=== PATIENT | male | born 1960 | race Caucasian/White ===

== ENCOUNTER 2017-05-26 18:53 | Emergency (ER) | payer OTHER ==
[~2017-05-26] VITALS: Ht 160 cm; Wt 77.1 kg
[~2017-05-26 18:53] MED LIST: MOBIC7.5 MG PO; NORCO 5-325 TA1 EACH PO; REQUIP4 MG PO
[2017-05-26 20:04] LABS: ABSOLUTE BASOPHILS 0.1 thou/uL (0.0-0.2); ABSOLUTE EOSINOPHILS 0.1 thou/uL (0.0-0.7); ABSOLUTE MONOCYTES 0.9 thou/uL (0.0-1.2); ABSOLUTE NEUTROPHILS 3.2 thou/uL (1.6-8.1); BASOPHILS 1.3 %; EOSINOPHILS 2.1 %; HEMATOCRIT 49.3 % (42.0-52.0); HEMOGLOBIN 16.4 gm/dL (14.0-18.0); LYMPHOCYTES 31.4 %; MCH 29.3 pg (26.0-34.0); MCHC 33.3 g/dL (28.0-37.0); MCV 88.1 fL (80.0-100.0); MONOCYTES 14.2 %; MPV 7.4 fl. (7.2-11.1); NUCLEATED RBCS 0 /100WBC; PLATELET COUNT* 207 thou/uL (150-400); RDW-CV 13.3 % (10.5-14.5); WBC 6.3 thou/uL (4.0-11.0)
[2017-05-26 20:20] LABS: POTASSIUM 4.5 mmol/L (3.5-5.1)
[2017-05-26 20:25] LABS: TOTAL BILIRUBIN 0.4 mg/dL (<0.1-1.0); TOTAL PROTEIN 6.1 g/dL (6.4-8.2)
[2017-05-26 21:24] LABS: URINE BILIRUBIN NEGATIVE (Negative); URINE BLOOD NEGATIVE (Negative); URINE CLARITY CLEAR; URINE COLOR YELLOW; URINE GLUCOSE-RANDOM NEGATIVE (Negative); URINE KETONES NEGATIVE (Negative); URINE LEUKOCYTES-REFLEX NEGATIVE (Negative); URINE NITRITE-REFLEX NEGATIVE (Negative); URINE PROTEIN NEGATIVE (Negative); URINE SPECIFIC GRAVITY >= 1.030 (1.005-1.030); URINE UROBILINOGEN 0.2 E.U./dl (0.2-1.0)
[2017-05-26] MEDS ORDERED: HYDROCODONE-AP1 EAC6 PO (22:09)
[2017-05-26 22:26] VITALS: BP 131/94
--- NOTE | 2017-05-27 11:27 | EKG ---
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 05/27/17 1127 02 02 Davi Ken MD, FACC /EPI
== END 2017-05-26 22:27 | disposition home or self-care (01) ==
LOC: M.ERS 18:53
PROVIDERS: Family Medicine
DX: R60.0 Localized edema (principal); I10 Essential (primary) hypertension

== ENCOUNTER 2017-12-28 06:53 | Emergency (ER) | payer OTHER ==
[~2017-12-28] VITALS: Ht 160 cm; Wt 78.0 kg
[~2017-12-28 06:53] MED LIST changes: +HYDROCODONE-AP1 EAC6 PO
[2017-12-28] MEDS ORDERED: COZAAR 25 MG TA25 M1 PO (07:03)
[2017-12-28 07:34] LABS: ABSOLUTE EOSINOPHILS 0.1 thou/uL (0.0-0.7); ABSOLUTE LYMPHOCYTES 1.9 thou/uL (0.8-5.3); ABSOLUTE MONOCYTES 0.5 thou/uL (0.0-1.2); ABSOLUTE NEUTROPHILS 3.3 thou/uL (1.6-8.1); BASOPHILS 0.7 %; EOSINOPHILS 2.3 %; HEMATOCRIT 44.9 % (42.0-52.0); HEMOGLOBIN 14.9 gm/dL (14.0-18.0); LYMPHOCYTES 32.5 %; MCH 27.7 pg (26.0-34.0); MCHC 33.1 g/dL (28.0-37.0); MCV 83.7 fL (80.0-100.0); MONOCYTES 9.1 %; MPV 7.5 fl. (7.2-11.1); NUCLEATED RBCS 0 /100WBC; PLATELET COUNT* 244 thou/uL (150-400); POLYS 55.4 %; RBC 5.37 mil/uL (4.50-6.00); RDW-CV 16.5 % (10.5-14.5); WBC 5.9 thou/uL (4.0-11.0)
[2017-12-28 07:38] LABS: ANION GAP 8 mmol/L (7-16); BUN 14 mg/dL (7-18); CALCIUM 8.6 mg/dL (8.5-10.1); CHLORIDE 104 mmol/L (98-107); CO2 28 mmol/L (21-32); GLUCOSE 108 mg/dL (70-99); POTASSIUM 4.2 mmol/L (3.5-5.1); SODIUM 140 mmol/L (136-145)
[2017-12-28 07:39] LABS: APTT 26.7 Seconds (25.0-31.3)
[2017-12-28 07:48] LABS: ALBUMIN 3.4 g/dL (3.4-5.0); ALKALINE PHOSPHATASE 95 U/L (46-116); NT-PRO BRAIN NAT PEPTIDE 258 pg/mL (<300); SGPT 45 U/L (30-65); TOTAL BILIRUBIN 0.4 mg/dL (<0.1-1.0); TOTAL PROTEIN 7.4 g/dL (6.4-8.2); TROPONIN-I LEVEL <0.06 ng/mL (<0.06)
[2017-12-28 07:51] LABS: SGOT 25 U/L (15-37)
[2017-12-28 08:16] VITALS: BP 152/86
--- NOTE | 2017-12-28 17:10 | EKG ---
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1960 Requested By: Neville Duran Order Number: [id number] MD: Nadir Figueroa Measurements Intervals [place] Rate: 59 P: -15 [place]: 126 QRS: -16 QRSD: 96 T: -11 QT: 502 QTc: 498 Interpretive Statements Sinus rhythm Left ventricular hypertrophy Borderline T abnormalities, inferior leads Borderline prolonged QT interval Compared to ECG 05/26/2017 20:03:03 no change Electronically Signed On 12-28-2017 17:09:54 CDT by Nadir Figueroa [email or web address] <ELECTRONICALLY SIGNED> By: Nadir Figueroa MD, [facility] 12/28/17 1709 3 3 Nadir Figueroa MD, [facility] /EPI
== END 2017-12-28 08:23 | disposition home or self-care (01) ==
LOC: M.ERS 06:53
PROVIDERS: Family Medicine
DX: I10 Essential (primary) hypertension (principal); Z96.653 Presence of artificial knee joint, bilateral

== ENCOUNTER → 2018-01-07 | Outpatient (CLI) | payer OTHER ==
[~2018-01-07] MED LIST changes: +COZAAR 25 MG TA25 M1 PO
== END ==
LOC: M.MRI 11:03
DX: M61.40 Other calcification of muscle, unspecified site (principal); R93.0 Abnormal findings on diagnostic imaging of skull and head, not elsewhere classified; I10 Essential (primary) hypertension

== ENCOUNTER → 2020-02-12 | Outpatient (CLI) | payer OTHER | LOC: M.LAB 11:44 | PROVIDERS: ATTEND Anesthesiology | DX: Z01.812 Encounter for preprocedural laboratory examination (principal); Z20.828 Contact with and (suspected) exposure to other viral communicable diseases; E87.6 Hypokalemia ==